=== PATIENT | female | born 2005 | race Caucasian/White ===

== ENCOUNTER 2025-01-07 21:26 | Emergency (ER) | payer SELFPAY ==
[~2025-01-07] VITALS: Ht 160 cm; Wt 59.0 kg
[~2025-01-07 21:26] MED LIST: IBUP100S60
[2025-01-08 00:48] VITALS: BP 112/67; RESP 16; TEMP 98.2; O2SAT 98
[2025-01-08] MEDS ORDERED: ACET500T58 PO (00:48)
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
--- NOTE | 2025-01-08 00:55 | ECG ---
[facility] Test Date: 2025-01-08 Test Time: 00:53:58 Pat Name: EDMOND SAMUELS Department: ED Room: Gender: F Cancer Genetic Counselor: BLAKE : 2005 Requested By: MARGARET ALFORD Order Number: [id number] Reading MD: Gene Moura Measurements Intervals [place] Rate: 68 P: 52 SD: 145 QRS: 73 QRSD: 87 T: 51 QT: 413 QTc: 440 Interpretive Statements Sinus arrhythmia Abnormal T, consider ischemia, anterior leads Electronically Signed On 01-08-2025 18:48:34 PDT by Gene Moura Please click the below link to view image of tracing.
[2025-01-08] MEDS: ACETAMINOPHEN 325 MG TAB PO ONE (01:04)
--- NOTE | 2025-01-08 01:35 | DVH ---
CHEST RADIOGRAPH Indication: chest wall pain Technique: 2 views Comparison: None FINDINGS: Lines and Tubes: None Lungs/Pleura: No focal consolidation, pleural effusion or pneumothorax. Cardiomediastinum: Unremarkable. Other: No acute osseous abnormality. Mild thoracic dextrocurvature. IMPRESSION: 1. No acute cardiopulmonary abnormality.
--- NOTE | 2025-01-08 01:57 | ECG ---
[facility] Test Date: 2025-01-08 Test Time: 01:55:59 Pat Name: EDMOND SAMUELS Department: ED Room: Gender: F Business Specialist: BLAKE : 2005 Requested By: MARGARET ALFORD Order Number: [id number] Reading MD: Gene Moura Measurements Intervals [place] Rate: 61 P: 40 VA: 147 QRS: 70 QRSD: 100 T: 52 QT: 424 QTc: 427 Interpretive Statements Sinus arrhythmia Abnormal T, consider ischemia, anterior leads Electronically Signed On 01-08-2025 18:48:40 PDT by Gene Moura Please click the below link to view image of tracing.
[2025-01-08 02:29] VITALS: PULSE 68
== END 2025-01-08 02:46 | disposition home or self-care (01) ==
LOC: ER 21:26 → EDBD 21:26 → ER 01-08 02:46
DX: S20.214A Contusion of middle front wall of thorax, initial encounter (principal); F84.0 Autistic disorder; V89.2XXA Person injured in unspecified motor-vehicle accident, traffic, initial encounter; Y93.89 Activity, other specified; Y92.89 Other specified places as the place of occurrence of the external cause; Y99.8 Other external cause status
CPT/HCPCS: 36415; 71046; 84484; 93005